=== PATIENT | female | born 1985 | race Caucasian/White ===

== ENCOUNTER 2018-11-26 23:36 | Emergency (ER) | payer MEDICAID ==
[~2018-11-26] VITALS: Ht 157.5 cm; Wt 60.6 kg
[2018-11-26 23:41] VITALS: BP 108/74
[2018-11-26] MEDS ORDERED: ALBU0.63 NEB (23:48)
[2018-11-27 00:14] LABS: HCG UR SG 1.017 (1.003-1.030); MICROSCOPIC AUTO
[2018-11-27 00:18] LABS: CULTURE INDICATED? YES
[2018-11-27] MEDS ORDERED: LIDOCAINE-MPF 1%, 5ML ONE (00:43)
[2018-11-27] MEDS ORDERED: CEFTRIAXONE 1,000 MG ONE (00:43)
[2018-11-27] MEDS ORDERED: CEFTRIAXONE 1,000 MG IM ONE (01:00)
== END 2018-11-27 01:06 | disposition home or self-care (01) ==
LOC: ED 23:48
DX: N10 Acute pyelonephritis (principal)
CPT/HCPCS: 81001; 81025; 87077; 87086; 96372; 99283; J0696